=== PATIENT | female | born 1940 | race Caucasian/White ===

== ENCOUNTER → 2018-01-22 | Outpatient (CLI) | payer MEDICARE, OTHER ==
[~2018-01-22] MED LIST: EVAMIST TOP; GEMF600 PO; HYDCHL25 PO; METFORMIN PO; SANTURA PO; TRAN4 PO
== END ==
LOC: LAB UCHC 14:39
DX: R82.90 Unspecified abnormal findings in urine (principal)
CPT/HCPCS: 87086

== ENCOUNTER → 2020-11-23 | Outpatient (CLI) | payer MEDICARE, OTHER | END | disposition home or self-care (01) | LOC: LAB UCHC 13:30 → LAB SHORT 13:30 | DX: R82.90 Unspecified abnormal findings in urine (principal) | CPT/HCPCS: 87077; 87086; 87186 ==

== ENCOUNTER → 2021-10-29 | Outpatient (CLI) | payer MEDICARE, OTHER | END | disposition home or self-care (01) | LOC: EDSTATUS 10:39 → LAB SHORT 13:47 → LAB 13:47 | DX: E11.9 Type 2 diabetes mellitus without complications (principal) | CPT/HCPCS: 82043 ==

== ENCOUNTER → 2022-09-02 | Outpatient (CLI) | payer MEDICARE, OTHER | LOC: LAB SHORT 14:15 → LAB 14:15 | DX: E11.9 Type 2 diabetes mellitus without complications (principal); R30.0 Dysuria | CPT/HCPCS: 83036; 87077; 87086; 87186 ==

== ENCOUNTER → 2023-09-03 | Outpatient (CLI) | payer MEDICARE, OTHER | END | disposition home or self-care (01) | LOC: LAB 17:51 → LAB SHORT 17:51 | DX: R10.2 Pelvic and perineal pain (principal) | CPT/HCPCS: 87077; 87086; 87186 ==

== ENCOUNTER → 2023-10-05 | Outpatient (CLI) | payer MEDICARE, OTHER ==
[2023-10-05 21:04] LABS: Albumin, Blood 3.6 g/dL (3.4-5.0); Anion Gap 6 mmol/L (6-16); Blood Urea Nitrogen 23 mg/dL (8-24); Bun/Creatinine Ratio 38.1 (12.0-20.0); CO2, Blood 25 mmol/L (21-32); Calcium, Blood 10.4 mg/dL (8.5-10.1); Chloride, Blood 110 mmol/L (98-108); Glomerular Filtration Rate 90 (60-); Glucose, Blood 157 mg/dL (70-99); Magnesium, Blood 1.9 mg/dL (1.6-2.4); Phosphorus, Blood 2.6 mg/dL (2.5-4.9); Potassium, Blood 3.8 mmol/L (3.5-5.5); Sodium, Blood 141 mmol/L (136-145)
[2023-10-11 11:23] LABS: HEMOGLOBIN A1C 7.2 % (4.8-5.6)
== END ==
LOC: LAB SHORT 18:24 → LAB 18:24
PROVIDERS: Family Medicine
DX: Z51.81 Encounter for therapeutic drug level monitoring (principal)
CPT/HCPCS: 80069; 83036; 83735

== ENCOUNTER → 2023-10-30 | Outpatient (CLI) | payer MEDICARE, OTHER | LOC: LAB SHORT 15:30 → LAB 15:30 | DX: R30.0 Dysuria (principal) | CPT/HCPCS: 87086 ==

== ENCOUNTER → 2024-07-28 | Outpatient (CLI) | payer MEDICARE, OTHER | LOC: LAB 15:22 → LAB SHORT 15:22 | DX: R30.0 Dysuria (principal) | CPT/HCPCS: 87086 ==